=== PATIENT | female | born 1980 | race Caucasian/White ===

== ENCOUNTER → 2019-06-17 18:25 | Outpatient (CLI) | payer BC, SELFPAY ==
--- NOTE | ~2019-06-17 | MM_ITS ---
EXAMINATION: MM screening [facility] BI w annette HISTORY: Screening mammogram TECHNIQUE: Craniocaudal and mediolateral oblique 3-D tomosynthesis images were obtained and synthetic 2-D images were generated. CAD analysis was submitted and interpreted. COMPARISON: No prior mammogram is available for comparison at this institution. BREAST PARENCHYMAL COMPOSITION: There are scattered areas of fibroglandular density. FINDINGS: There is no evidence of suspicious mass, calcification, or architectural distortion to sugg est malignancy in either breast. IMPRESSION: 1. No mammographic evidence of malignancy. 2. Recommend routine screening mammography in one year. BI-RADS Category 1: Negative Reviewed, dictated and finalized at location A. R CRIME INVESTIGATOR
== END ==
PROVIDERS: Visit Provider Nurse Practitioner Psychiatric/Mental Health
DX: Z12.31 Encounter for screening mammogram for malignant neoplasm of breast (principal)
CPT/HCPCS: 77063; 77067

== ENCOUNTER → 2019-07-30 14:04 | Outpatient (CLI) | payer BC, SELFPAY ==
--- NOTE | ~2019-07-30 | US_ITS ---
US renal BI 07/30/2019 15:11 Procedure: Realtime transabdominal ultrasound of the kidneys and bladder. Indication: Kidney stones Comparison: Ultrasound dated 08/22/2016 Findings: There are echogenic renal pyramids bilaterally. There are bilateral renal cysts, largest in the right kidney inferiorly measuring 2.7 cm maximum dimension in largest on the left measures 2.3 c m. No solid masses are identified. Bladder is not well distended, although unremarkable. No hydroneph rosis. The right kidney measures 13.2 cm and left kidney measures 11.6 cm. Bladder within normal jose its. 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 2: Bilateral renal cysts. Reviewed, dictated and finalized at location A. 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 2: Bilateral renal cysts.
== END ==
PROVIDERS: Visit Provider Nurse Practitioner Psychiatric/Mental Health
DX: R10.32 Left lower quadrant pain (principal); N28.1 Cyst of kidney, acquired
CPT/HCPCS: 76775

== ENCOUNTER → 2020-07-15 14:51 | Outpatient (CLI) | payer BC, SELFPAY ==
--- NOTE | ~2020-07-15 | MM_ITS ---
EXAMINATION: MM screening [facility] BI w annette HISTORY: Screening mammogram TECHNIQUE: Craniocaudal and mediolateral oblique 3-D tomosynthesis images were obtained and synthetic 2-D images were generated. CAD analysis was submitted and interpreted. COMPARISON: bilateral digital screening mammogram BREAST PARENCHYMAL COMPOSITION: There are scattered areas of fibroglandular density. FINDINGS: There is no evidence of suspicious mass, calcification, or architectural distortion to sugg est malignancy in either breast. There has been no suspicious interval change. IMPRESSION: 1. No mammographic evidence of malignancy. 2. Recommend routine screening mammography in one year. BI-RADS Category 1: Negative Reviewed, dictated and finalized at location A. STORE REPRESENTATIVE
== END ==
PROVIDERS: PCP Nurse Practitioner Psychiatric/Mental Health; Visit Provider Nurse Practitioner Psychiatric/Mental Health
DX: Z12.31 Encounter for screening mammogram for malignant neoplasm of breast (principal)
CPT/HCPCS: 77063; 77067

== ENCOUNTER → 2021-09-19 13:52 | Outpatient (REF) | payer BC, SELFPAY | LOC: ANHLAB 13:52 | PROVIDERS: PCP Nurse Practitioner Psychiatric/Mental Health; Visit Provider Surgery Plastic and Reconstructive Surgery | DX: L72.0 Epidermal cyst (principal) | CPT/HCPCS: 88304 ==